=== PATIENT | female | born 1955 | race Caucasian/White ===

== ENCOUNTER 2021-12-31 12:38 | Emergency (ER) | payer OTHER, SELFPAY ==
--- NOTE | ~2021-12-31 | XR_ITS ---
EXAMINATION: XR foot RT min 3V DATE: 12/31/2021 13:05 INDICATION: Right foot injury and pain. TECHNIQUE: 4 views of right foot were obtained. COMPARISON: None. FINDINGS: Bone alignment is normal. There is an oblique fracture of distal fibula. There is mild oste oarthritis of first metatarsophalangeal joint and some of the interphalangeal joints. There is an ent hesophyte at plantar aspect of calcaneal tuberosity. IMPRESSION: 1. Oblique fracture of distal fibula. 2. Mild polyarticular osteoarthritis. Reviewed, dictated and finalized at location A. TURE AND ROTOR WINDER
--- NOTE | ~2021-12-31 | XR_ITS ---
EXAMINATION: XR ankle RT min 3V DATE: 12/31/2021 13:02 INDICATION: Right ankle injury and pain. TECHNIQUE: 4 views of right ankle were obtained. COMPARISON: None. FINDINGS: There is an oblique fracture of distal fibula with medial aspect of the fracture line 10 mm proximal to the level of the tibial plafond. The distal fracture fragment demonstrates near-anatomic alignment. There is an osteochondral lesion of medial talar dome. There is an enthesophyte at planta r aspect of calcaneal tuberosity. IMPRESSION: 1. Oblique fracture of distal fibula. 2. Osteochondral lesion of medial talar dome. Reviewed, dictated and finalized at location A. RPROOFING MACHINE OPERATOR
[2021-12-31 13:08] VITALS: BP 180/86; PULSE 98; RESP 16; TEMP 36.8; O2SAT 99
--- NOTE | 2021-12-31 13:58 | ED.GENADULT ---
HPI - General Adult General Chief complaint: Extremity Injury, Lower Stated complaint: Right ankle pain Source: patient Mode of arrival: ambulatory Limitations: no limitations History of Present Illness HPI narrative: Patient presents for evaluation right lower extremity pain. Indicates she slipped on the ice 3 weeks ago and landed on her RLE. She did not hit her head nor did she have LOC. She has not a considerable amount of pain in that extremity. She thought that she had a sprain of her right ankle so did not seek medical attention. She has noticed right lower extremity is significantly larger than the left lower extremity so came in here for further evaluation. She is a current 1 pack/day smoker. She is not on estrogen. No personal or family history of VTE. Related Data Home Medications Medication Instructions Recorded Confirmed cetirizine 10 mg tablet 10 mg PO DAILY PRN 11/19/20 12/31/21 Allergies Allergy/AdvReac Type Severity Reaction Status Date / Time No Known Allergies Allergy Verified 12/31/21 13:07 Review of Systems Review of Systems: CONSTITUTIONAL: Denies fever, chills, or sweats. EYES: Denies visual changes, redness, or discharge. ENT: Denies rhinorrhea, congestion, sore throat, or otalgia. CARDIOVASCULAR: Denies chest pain, palpitations RESPIRATORY: Denies cough or dyspnea. GASTROINTESTINAL: Denies abdominal pain, nausea, vomiting, or diarrhea. GENITOURINARY: Denies dysuria or hematuria. SKIN: Denies rash or itching. MUSCULOSKELETAL: Reports swelling in the right lower extremity. Denies back pain or myalgia NEUROLOGIC: Denies headache, numbness, dizziness, or weakness. PSYCHIATRIC: Denies anxiety or depression. [facility] Past Medical History Medical History (Updated 12/31/21 @ 14:04 by LUCAS Gonzalez, NISHA) Atopic dermatitis Essential (primary) hypertension Surgical History Surgical History History of nasal septoplasty Family History Family History Mother Family history of arthritis Family history of irritable bowel syndrome Social History Social History Smoking status: Heavy tobacco smoker Alcohol intake: current Alcohol use details: 4 drinks 3-4 times per week Substance use: never Living arrangements: with family Gender identity (if verbalized by the patient): Female Sexual Orientation (if Verbalized by the Patient): Straight or Heterosexual Spiritual care concerns: No Exam Narrative: GENERAL: Well-appearing, well-nourished, and in no acute distress. HEAD: Normocephalic, atraumatic. EYES: PERRLA and EOMI. ENT: Nares clear, no rhinorrhea or epistaxis. Mucous membranes moist. Oropharynx without tonsillar hypertrophy exudate or other lesions. Bilateral TMs pearly white nonbulging NECK: Supple. No adenopathy or masses. No carotid bruits or JVD CHEST: Clear to auscultation. No respiratory distress. No wheezes rales or rhonchi HEART: Regular rate and rhythm. No murmur heard. Normal peripheral pulses. ABDOMEN: Soft, nontender, nondistended, normal active bowel sounds. EXTREMITIES: Normal range of motion. 2+ pitting edema right lower extremity. Trace pitting edema left lower extremity. SKIN: Warm, dry, no rash. NEURO: No focal deficits. Alert and oriented x3. PSYCH: Normal mood and affect. Course Course Emergency Course: This is a 66-year-old female who presented with swelling in her right lower extremity after a fall 3 weeks ago. There is asymmetrical enlargement of right lower extremity. Recent long bone fracture and current smoking habit, I would be concerned for DVT. We do not have crutches to provide patient and she would likely benefit from ultrasound. Will transfer to the ER for further evaluation. She was not splinted as this will need to be removed for ultrasound. I spo
== END 2021-12-31 14:08 | disposition short-term general hospital (02) ==
PROVIDERS: Emergency Provider Nurse Practitioner; PCP Family Medicine
DX: S82.831A Other fracture of upper and lower end of right fibula, initial encounter for closed fracture (principal); W00.9XXA Unspecified fall due to ice and snow, initial encounter; R60.0 Localized edema; F17.200 Nicotine dependence, unspecified, uncomplicated; I10 Essential (primary) hypertension
CPT/HCPCS: 73610; 73630; 99213; G0463

== ENCOUNTER 2021-12-31 14:27 | Emergency (ER) | payer OTHER, SELFPAY ==
--- NOTE | ~2021-12-31 | US_ITS ---
EXAMINATION:US venous doppler LE RT INDICATION:Leg swelling TECHNIQUE: Multiple grayscale, color flow and Doppler images of the right lower extremity deep venous systems were obtained and reviewed. COMPARISON:No prior studies for comparison. FINDINGS: The common femoral, superficial femoral and popliteal veins demonstrate normal respiratory variation, augmentation and compressibility. Color flow is also seen within the posterior tibial, pe roneal, greater saphenous and profunda veins. IMPRESSION: 1: No lower extremity deep venous thrombosis. Reviewed, dictated and finalized at location A. SWING OPERATOR
[2021-12-31 14:31] VITALS: BP 176/92; PULSE 83; RESP 16; O2SAT 98
--- NOTE | 2021-12-31 15:43 | ED.LOWEXIN ---
HPI - Extremity Injury (Lower) General Chief Complaint: Extremity Injury, Lower Stated Complaint: right leg injury Time Seen by Provider: 12/31/21 14:40 Source: patient and RN notes reviewed Mode of arrival: ambulatory Limitations: no limitations History of Present Illness HPI Narrative: This is a 66 year old female who presents from [facility] for evaluation to rule out DVT. Patient fell and injured her right ankle 2.5 weeks ago. She developed ankle bruising and swelling at time of injury. She has been walking around on her right hand. She has minimal pain unless she bears weight. She finally went to [facility] for evaluation today because her swelling did not improve. She was found to have nondisplaced fibula fracture at [facility]. She was sent to ER for Venous DOppler to rule out DVT. She denies chest pain, shortness of breath or dizziness. She denies history of DVT, PE. Related Data Home Medications Medication Instructions Recorded Confirmed cetirizine 10 mg tablet 10 mg PO DAILY PRN 11/19/20 12/31/21 Allergies Allergy/AdvReac Type Severity Reaction Status Date / Time No Known Allergies Allergy Verified 12/31/21 13:07 Review of Systems Review of Systems: All systems reviewed & are unremarkable except as noted in HPI and below PMFSH Past Medical History Medical History (Updated 12/31/21 @ 15:48 by Annalise Sosa MD) Atopic dermatitis Essential (primary) hypertension Surgical History Surgical History History of nasal septoplasty Family History Family History Mother Family history of arthritis Family history of irritable bowel syndrome Social History Social History Smoking status: Heavy tobacco smoker Alcohol intake: current Alcohol use details: 4 drinks 3-4 times per week Substance use: never Gender identity (if verbalized by the patient): Female Sexual Orientation (if Verbalized by the Patient): Straight or Heterosexual Spiritual care concerns: No Exam Const: General: no acute distress and alert Orientation/consciousness: patient oriented x3 Eyes: EOM: EOMs intact bilaterally Resp: Effort & Inspection: normal respiratory effort Neuro: General: patient oriented x3 and moves all extremities Extrem: Other: right ankle and lower leg with swelling, no calf tenderness, no bruising. able to move . neurovascularly intact, palpable DP pulse Psych: Mental Status: mental status grossly normal Affect: normal affect Course Reevaluation(s) Reevaluation #1: I showed patient xray and discussed discharge plan to follow up . Date: 12/31/21 Time: 15:46 Vital Signs Vital signs: Vital Signs Pulse Rate 83 12/31/21 14:31 Respiratory Rate 16 12/31/21 14:31 Blood Pressure 176/92 H 12/31/21 14:31 Pulse Oximetry 98 12/31/21 14:31 Pulse Rate 83 12/31/21 14:31 Respiratory Rate 16 12/31/21 14:31 Blood Pressure 176/92 H 12/31/21 14:31 Pulse Oximetry 98 12/31/21 14:31 MDM - Extremity Injury (Lower) Imaging Data Radiologist's impression: ITS Impressions Venous Doppler Study 12/31/21 15:16 IMPRESSION: 1: No lower extremity deep venous thrombosis. Discharge Plan Discharge Clinical Impression: Closed nondisplaced oblique fracture of shaft of fibula Qualifiers: Encounter type: initial encounter Laterality: right Qualified Code(s): S82.434A - Nondisplaced oblique fracture of shaft of right fibula, initial encounter for closed fracture Patient Disposition: Home, Self-Care Condition: Stable Instructions: Ankle Fracture (ED), Leg Fracture (ED) Additional Instructions: Call the orthopedic surgeon on Sunday to arrange for follow up appointment. Read discharge instructions. Do not bear weight on your right leg until you a
== END 2021-12-31 16:35 | disposition home or self-care (01) ==
PROVIDERS: Emergency Provider General Practice; PCP Family Medicine
DX: S82.434A Nondisplaced oblique fracture of shaft of right fibula, initial encounter for closed fracture (principal); I10 Essential (primary) hypertension; F17.200 Nicotine dependence, unspecified, uncomplicated; W19.XXXA Unspecified fall, initial encounter
CPT/HCPCS: 29515; 93971; 99284

== ENCOUNTER → 2022-06-30 11:50 | Outpatient (CLI) | payer OTHER, SELFPAY ==
--- NOTE | ~2022-06-30 | CT_ITS ---
EXAMINATION: CT lung screening DATE: 06/30/2022 12:13 INDICATION: Tobacco use TECHNIQUE: Computed tomography (CT) of the chest was performed without intravenous contrast. Automate d exposure control and iterative reconstruction technique were employed. Exam dose: 116.60 mGy-cm to hui exam DLP. COMPARISON: 09/13/2017 two-view chest FINDINGS: Scattered primarily central and upper lung patchy septal soft tissue thickening of the lung s. There is old pulmonary granulomatous disease on the right. No pulmonary mass lesion. No pulmonary infiltrate or consolidation or pulmonary mass lesion is detect ed. Normal heart size. Coronary artery calcification. No thoracic aortic aneurysm. There is thoracic aort ic and great vessel calcification. No hilar or mediastinal mass lesion or lymphadenopathy. No pericardial or pleural effusion. Normal morphology of the adrenal glands. IMPRESSION: Lung RADS category 1: Negative Recommendation: Continue annual screening with LD CT in 12 months Reviewed, dictated and finalized at Location A. Reviewed, dictated and finalized at location B.
== END ==
PROVIDERS: PCP Family Medicine; Visit Provider Family Medicine
DX: Z12.2 Encounter for screening for malignant neoplasm of respiratory organs (principal); F17.210 Nicotine dependence, cigarettes, uncomplicated
CPT/HCPCS: 71271

== ENCOUNTER → 2022-09-04 15:51 | Outpatient (CLI) | payer OTHER, SELFPAY ==
--- NOTE | ~2022-09-04 | MM_ITS ---
EXAMINATION: MM screening nichole BI w serafin HISTORY: Screening mammogram TECHNIQUE: Craniocaudal and mediolateral oblique 3-D tomosynthesis images were obtained and synthetic 2-D images were generated. CAD analysis was submitted and interpreted. COMPARISON: No prior mammogram is available for comparison at this institution. BREAST PARENCHYMAL COMPOSITION: There are scattered areas of fibroglandular density. FINDINGS: Multiple scattered bilateral benign calcifications are noted. There is no evidence of suspi cious mass, calcification, or architectural distortion to suggest malignancy in either breast. There has been no suspicious interval change. IMPRESSION: 1. No mammographic evidence of malignancy. 2. Recommend routine screening mammography in one year. BI-RADS Category 2: Benign finding(s). Reviewed, dictated and finalized at location A. FILL GAS COLLECTION OPERATOR
== END ==
PROVIDERS: PCP Family Medicine; Visit Provider Family Medicine
DX: Z12.31 Encounter for screening mammogram for malignant neoplasm of breast (principal)
CPT/HCPCS: 77063; 77067

== ENCOUNTER 2023-01-08 13:31 | Outpatient (CLI) | payer OTHER, SELFPAY ==
--- NOTE | ~2023-01-08 | US_ITS ---
EXAMINATION: US carotid duplex BI DATE: 01/08/2023 14:30 INDICATION: Carotid bruit. Other specified symptoms and signs involving the circulatory system. TECHNIQUE: Grayscale, color Doppler, and pulsed Doppler images of the cervical carotid arteries were obtained. The degree of vessel stenosis is placed in one of the following categories: normal, <50%, 5 0-69%, >=70% but less than near-occlusion, near-occlusion, or total occlusion. Note that percent sten osis relative to normal distal artery lumen diameter is indirectly measured from velocity measurement s as described by Alberto, et al. Radiology 2003; 229:340-346. COMPARISON: None. FINDINGS: RIGHT: The right common carotid artery (CCA) peak systolic velocity (PSV) is 55 cm/s. The right internal car otid artery (ICA) PSV is 43 cm/s. The right ICA end-diastolic velocity (EDV) is 15 cm/s. The right IC A/CCA PSV ratio is 0.8. Grayscale and color Doppler images yield an estimate of <50% diameter reducti on from plaque in the ICA. There is antegrade flow in the right vertebral artery. LEFT: The left CCA PSV is 38 cm/s. The left ICA PSV is 34 cm/s. The left ICA EDV is 13 cm/s. The left ICA/C CA PSV ratio is 0.9. Grayscale and color Doppler images yield an estimate of <50% diameter reduction from plaque in the ICA. There is antegrade flow in the left vertebral artery. IMPRESSION: 1. <50% stenosis in the right internal carotid artery. 2. <50% stenosis in the left internal carotid artery. Reviewed, dictated and finalized at location A.
== END 2023-01-08 13:32 | disposition home or self-care (01) ==
PROVIDERS: PCP Family Medicine; Visit Provider Nurse Practitioner
DX: R09.89 Other specified symptoms and signs involving the circulatory and respiratory systems (principal); I65.23 Occlusion and stenosis of bilateral carotid arteries
CPT/HCPCS: 93880

== ENCOUNTER → 2023-03-29 13:43 | Outpatient (CLI) | payer OTHER, SELFPAY ==
--- NOTE | ~2023-03-29 | US_ITS ---
EXAMINATION: US venous doppler [facility] DATE: 03/29/2023 14:03 INDICATION: Left lower limb swelling. Other specified soft tissue disorders. TECHNIQUE: Grayscale ultrasound images without and with compression and Doppler ultrasound images of the left lower extremity veins were obtained. COMPARISON: None. FINDINGS: The visualized portions of left common femoral vein, profunda (deep) femoral vein, femoral vein, popl iteal vein, peroneal veins, posterior tibial veins, and greater saphenous vein outflow are patent. IMPRESSION: 1. No deep venous thrombosis. Reviewed, dictated and finalized at location A.
== END ==
PROVIDERS: PCP Family Medicine; Visit Provider Family Medicine
DX: M79.89 Other specified soft tissue disorders (principal)
CPT/HCPCS: 93971

== ENCOUNTER 2023-04-18 13:57 | Outpatient (CLI) | payer OTHER, SELFPAY ==
--- NOTE | ~2023-04-18 | US_ITS ---
US arterial ankle brachial ind INDICATION: Leg swelling. History of smoking. Hypertension. TECHNIQUE: Segmental pressures and plethysmographic and Doppler waveforms of the brachial and lower e xtremity arteries were obtained. COMPARISON: None. FINDINGS: Right and left brachial artery pressures of 133 mm Hg and 139 mm Hg, respectively, are concordant (no rmal difference <= 30 mmHg). The right ankle-brachial index (RICKEY) is 1.09 (normal >= 0.9-1.0). The right great toe-brachial index (TBI) is 0.61 (normal >= 0.60). The left RICKEY is 1.14. The left TBI is 0.95. IMPRESSION: 1. Normal bilateral ankle and toe brachial indices. Reviewed, dictated and finalized at location []
== END 2023-04-18 13:58 | disposition home or self-care (01) ==
PROVIDERS: PCP Family Medicine; Visit Provider Family Medicine
DX: M79.89 Other specified soft tissue disorders (principal); I10 Essential (primary) hypertension
CPT/HCPCS: 93922

== ENCOUNTER 2025-03-19 15:30 | Emergency (ER) | payer OTHER, SELFPAY ==
--- NOTE | ~2025-03-19 | XR_ITS ---
XR chest 2V Ordering provider: Zaida Hassan APRN History: 69 years Female with . cough, shortness of breath, wheezing x 3 days; smoker . Comparison: None FINDINGS: MEDIASTINUM: The cardiac silhouette is not enlarged. LUNGS: No effusions or pneumothorax. Prominent bronchovascular markings in the lower lobes. Early pne umonia is not excluded. OTHER: No free air under the diaphragm. IMPRESSION: Prominent bronchovascular markings in the lower lobes. Early pneumonia is not excluded. Follow-up adv ised. Reviewed, dictated and finalized at location A. IMPRESSION: Prominent bronchovascular markings in the lower lobes. Early pneumonia is not e xcluded. Follow-up advised.
--- NOTE | 2025-03-19 15:33 | ED.URI ---
HPI - URI/Sore Throat General Chief Complaint: Upper Respiratory Infection Stated Complaint: SOB/Sinus Source: patient and RN notes reviewed Mode of arrival: ambulatory Limitations: no limitations History of Present Illness HPI Narrative: Patient is a 69-year-old female who presents to the [facility] with sinus pressure, cough, and shortness of breath that started yesterday. Patient reports a frequent productive cough with white/yellow sputum. She reports intermittent shortness of breath that worsens with exertion and coughing. Denies chest pain. States that she has had sinus pain and pressure since yesterday. She endorses nasal congestion and drainage. States that she has also had bilateral ear pain. Denies sore throat. Denies any known sick contacts. Related Data Allergies Allergy/AdvReac Type Severity Reaction Status Date / Time No Known Allergies Allergy Verified 10/07/24 13:03 Review of Systems Review of Systems: CONSTITUTIONAL: Denies fever, chills, or sweats. EYES: Denies visual changes, redness, or discharge. ENT: Reports otalgia, nasal congestion, sinus pain/pressure. CARDIOVASCULAR: Denies chest pain, palpitations, or edema. RESPIRATORY: Reports cough and dyspnea. GASTROINTESTINAL: Denies abdominal pain, nausea, vomiting, or diarrhea. GENITOURINARY: Denies dysuria or hematuria. SKIN: Denies rash or itching. MUSCULOSKELETAL: Denies back pain, joint pain, or myalgia. NEUROLOGIC: Denies headache, numbness, or weakness. Pertinent positives per HPI. [facility] Past Medical History Medical History Fracture of distal end of right fibula Atopic dermatitis Essential (primary) hypertension Surgical History Surgical History History of nasal septoplasty Family History Family History Mother Family history of arthritis Family history of irritable bowel syndrome Social History Social History Smoking packs per day: 1.25 Smoking cigarettes per day: 25.0 Years smoked: 46 Smoking pack-years: 57.50 Smoking status: Heavy tobacco smoker Alcohol intake: current Alcohol use details: 4 drinks 3-4 times per week Substance use: never Lack of Transportation: No Current Housing: I Have Housing Concerned About Future Housing: No Difficulty Paying Gas/Electric Bills: No Difficulty Paying for Meds: No Currently Unemployed: No Education: Bachelor's Degree Difficulty w/ Childcare or Family Care: No Living arrangements: with family Gender identity (if verbalized by the patient): Female Sexual Orientation (if Verbalized by the Patient): Straight or Heterosexual Spiritual care concerns: No Comments At the time of my signature, I reviewed and agree with the nursing past medical, surgical, social, and family history. There is no relevant family history pertinent to the patient complaint. Exam Narrative: GENERAL: This is a well-nourished, well-developed patient, in no apparent distress. HEAD: normocephalic, atraumatic. EYES: Sclera clear/white. Vision is grossly intact. EARS: External ears normal. Bilateral TMs erythematous. Hearing grossly intact. NOSE: External nose normal. + congestion. THROAT: Mucous membranes moist, posterior pharynx clear. NECK: Neck supple, non-tender without lymphadenopathy, masses or thyromegaly. CARDIOVASCULAR: Regular rate and rhythm without murmurs, gallops, or rubs. RESPIRATORY: Rhonchi (left). Bilateral diffuse wheezing. GASTROINTESTINAL: Abdomen soft, non-tender, nondistended. Bowel sounds are active. No hepato-splenomegaly, or palpable masses. No guarding. SKIN: warm, intact with no suspicious lesions or rash, good texture and turgor. NEURO: awake, alert, and oriented to person, place and time. There were no obvious focal neurologic abnormalities. EXTREMITIES: No clubbing, cyanosis, or edema. No joint tenderness, effusion, or edema noted. Course Course Level of Care: Express Care Visit Vital Signs Vital signs: Vital Signs Temperature 98.1 F 03/19/25 15:40 Pulse Rate 73 03/19/25 15:40 Respiratory Rate 16 03/19/25 15:40 Blood Pressure 134/81 03/19/25 15:40 Pulse Oximetry 96 03/19/25 15:40 Temperature 98.1 F 03/19/25 15:40 Pulse Rate 73 03/19/25 15:40 Respiratory Rate 16 03/19/25 15:40 Blood Pressure 134/81 03/19/25 15:40 Pulse Oximetry 96 03/19/25 15:40 Reviewed MDM - URI/Sore Throat MDM Narrative Medical decision making narrative: Take medications as directed. May use the inhaler every 4-6 hours as needed for coughing. Increase fluids at home. Avoid any and all smoke. May use a humidifier in the bedroom. Increase your Vitamin C. Follow-up with personal physician in 2-5 days. Differential Diagnosis Differential diagnosis: Likely upper respiratory infection, sinusitis, viral infection, bronchitis, influenza and other (covid, pneumonia) Lab Data Attestation: I reviewed the patient's lab results. Imaging Data Attestation: I personally reviewed and interpreted this imaging study as follows: Radiologist's impression: Close Chest X-Ray (Signed) Mario Li - 03/19/25 Launch?[facility] [address] [place] [address] XRay Report Signed Patient: Angelika Nation : 1955 MR#: [id number] Age: 69 Acct:[id number] Loc: [facility] ADM Date: 03/19/25Attending Dr: Ordering Physician: Zaida Hassan APRN Date of Service: 03/19/25 Procedure(s): XR chest 2V Accession Number(s): [id number] cc: Zaida Hassan APRN; Libby Quijano DO~ XR chest 2V Ordering provider: Zaida Hassan APRN History: 69 years Female with . cough, shortness of breath, wheezing x 3 days; smoker . Comparison: None FINDINGS: MEDIASTINUM: The cardiac silhouette is not enlarged. LUNGS: No effusions or pneumothorax. Prominent bronchovascular markings in the lower lobes. Early pneumonia is not excluded. OTHER: No free air under the diaphragm. IMPRESSION: Prominent bronchovascular markings in the lower lobes. Early pneumonia is not excluded. Follow-up advised. Reviewed, dictated and finalized at location A. Please be advised this is a medical document. It is intended for [id number] communication. It is written in medical language and may contain unfamiliar abbreviations or verbiage. Medical documents are intended to carry relevant information, facts as evident, and the clinical opinion of the practitioner at the time of the encounter. This report may have been done utilizing a voice recognition system. Attempts have been made to correct errors. However, there may be uncorrected grammatical, spelling, and recognition errors present. The file time of this note does not necessarily represent the time of service. Dictated By: Mario Li MD 03/19/25 1556 Signed By: <Electronically signed by Mario Li MD in OV> 03/19/25 1556 Critical Care Time Critical Care Time Critical Care Time: No Discharge Plan Discharge Clinical Impression: Community acquired pneumonia Qualifiers: Laterality: unspecified laterality Qualified Code(s): J18.9 - Pneumonia, unspecified organism Patient Disposition: Home Condition: Stable Instructions: Antibiotic Form, Community Acquired Pneumonia (ED) Additional Instructions: Take medications as directed. May use the inhaler every 4-6 hours as needed for coughing. Increase fluids at home. Avoid any and all smoke. May use a humidifier in the bedroom. Increase your Vitamin C. Follow-up with personal physician in 2-5 days. Patient Language: Tajik Prescriptions: New albuterol sulfate [Ventolin HFA] 90 mcg/actuation HFA aerosol inhaler 2 puff inhalation QID PRN (Reason: shortness of breath or wheezing) Qty: 8.5 0RF prednisone 50 mg tablet 50 mg PO DAILY 5 Days Qty: 5 0RF azithromycin 250 mg tablet See Rx Instructions .ROUTE .COMPLEX Qty: 6 0RF Rx Instructions: For 250 mg dose pack: take 500 mg today (day 1), then 250 mg for 4 days (days 2-5) No Action albuterol sulfate 90 mcg/actuation HFA aerosol inhaler See Rx Instructions .ROUTE .COMPLEX Qty: 8.5 2RF Dose Instruction: INHALE 1 PUFF EVERY 4 - 6 HOURS NEEDED FOR SHORTNESS OF BREATH OR WHEEZING Rx Instructions: INHALE 1 PUFF EVERY 4 - 6 HOURS NEEDED FOR SHORTNESS OF BREATH OR WHEEZING amlodipine 10 mg tablet See Rx Instructions .ROUTE .COMPLEX Qty: 90 1RF Dose Instruction: TAKE 1 TABLET BY MOUTH EVERY DAY Rx Instructions: TAKE 1 TABLET BY MOUTH EVERY DAY Follow-up/Referrals: Libby Quijano DO [Primary Care Provider] - Time of Disposition: 16:03
[2025-03-19 15:40] VITALS: BP 134/81; PULSE 73; RESP 16; TEMP 36.7; O2SAT 96
[2025-03-19 16:29] LABS: EDCOVIDSCREEN Negative (Negative); EDINFLUASCREEN Negative (Negative); EDINFLUBSCREEN Negative (Negative)
== END 2025-03-19 16:12 | disposition home or self-care (01) ==
PROVIDERS: Emergency Provider Nurse Practitioner; PCP Family Medicine
DX: J18.9 Pneumonia, unspecified organism (principal); Z20.822 Contact with and (suspected) exposure to COVID-19; F17.210 Nicotine dependence, cigarettes, uncomplicated; I10 Essential (primary) hypertension
CPT/HCPCS: 71046; 87426; 87804; 99213; G0463

== ENCOUNTER 2025-09-08 14:47 | Outpatient (CLI) | payer OTHER, SELFPAY ==
--- OUTSIDE RECORDS SUMMARY | 2025-09-08 14:58 | XMS_ITS | Clinical Summary ---
Author Organization [facility] Address [address] [place] [id number] Care Team Providers Care Analytical Research Program Manager Name Role Phone None, Provider Primary Care Provider Unavaila ble Allergies No known active allergies Medications albuterol sulfate HFA 108 (90 Base) MCG/ACT inhaler Inhale 2 puffs into the lungs every 6 (six) hours as needed for Wheezing. 6.7 g 1 08/20/2025 Active predniSONE (DELTASONE) 10 mg tablet Take 4 tablets (40 mg total) by mouth daily for 6 days. 24 tablet 08/21/2025 08/27/20 25 Encounters Date Type Department Care Team Description 08/20/2025 12:24 PM CDT - 08/20/2025 2:11 PM CDT Emergency [facility] [place] [address] Sukhdev Badillo, Shortness Of Breath Discharge Disposition: Home or Self Care (Routine Discharge) 08/20/2025 Travel from Last 3 Months Social History Tobacco Use Types Packs/Day Years Used Date Smoking Tobacco: Every Day Cigarettes Smokeless Tobacco: Never Tobacco Cessation:Ready to Q uit: Not Asked; Counseling Given: Not Answered Alcohol Use Standard Drinks/Week Comments Not Currently 0 (1 standard drink = 0.6 oz pur e alcohol) Comments Unknown Sex and Gender Information Value Date Recorded Sex Assigned at Not on file Legal Sex Female 11:41 AM CDT Gender Identity Not on file Sexual Orientation Not on file Last Filed Vital Signs Vital Sign Reading Time Taken Comments Blood Pressure 133/78 08/20/2025 1:58 PM CDT Pulse 76 08/20/2025 1:58 PM CDT Temperature 36.4 C (97.5 F) 08/20/2025 11:48 AM CDT Respiratory Rate 16 08/20/2025 1:58 PM CDT Oxygen Saturation 100% 08/20/2025 1:58 PM CDT Inhaled Oxygen Concentration - - Weight 78.8 kg (173 lb 11.6 oz) 025 11:48 AM CDT Height 170.2 cm (5' 7) 08/20/2025 11:4 8 AM CDT Body Mass Index 27.21 08/20/2025 11:48 AM CDT Plan of Treatment Health Maintenance Due Date Last Done Comments Colorectal Cancer Screening Colonoscopy (10 Years) 1955 Hepatitis C 1975 DTaP, Tdap and Td Vaccines ( 1 - Tdap) 1976 Pneumococcal Vaccine: 50+ Years (1 of 2 - PCV) 1976 Mammogram Screening 1997 Zoster Vaccines (1 of 2) 2007 Annual Medicare Wellness Visit 2022 Dexa Scan (General) 2022 COVID-19 Vaccine (4 - 2024-2 6 season) 2025 09/17/2021, 02/06/2021, 01/13/2021 Influenza Adult (#1) 2025 09/08/2017 RSV Immunization or 60+ Years (1 - 1-dose 75+ series) 2032 Hepatitis A Vaccines Aged Out No long er eligible based on patient's age to complete this topic Meningococcal B Vaccine Aged Out No l onger eligible based on patient's age to complete this topic Meningococcal Vaccine Aged Out No alex kevon eligible based on patient's age to complete this topic RSV Immunizations Under 20 Months Aged Out No longer eligible b ased on patient's age to complete this topic Procedures Procedure Name Priority Date/Time Associated Diagnosis Comments XR CHEST PORTABLE STAT 08/20/2025 12: 52 PM CDT ECG 12-LEAD STAT 08/20/2025 12:34 PM CDT ELECTROCARDIOGRAM REPORT Routine 12:34 PM CDT COMPREHENSIVE METABOLIC PANEL STAT 08/20/2025 12:34 PM CDT CBC W/DIFF AUTOMATED STAT 08/20/2025 12:34 PM CDT from Last 3 Months Results * XR CHEST PORTABLE (08/20/2025 12:52 PM CDT) Anatomical Region Laterality Modality Chest Radiographic Hilda ging 08/20/2025 1:04 PM CDT Impressions 08/20/2025 1:10 PM CDT IMPRESSION: 1. Mild findings of viral or reactive airway disease could be bronchitis or bronchiolitis or perihilar interstitial pneumonia. 2. Given the chronicity of symptoms, at some point might consider high-resolution CT of the chest and referral to the pulmonary service.. Referred By: Interpreted By: Rachel Morgan DO, 08/20/2025 1:04 PM Narrative 08/20/2025 1:[address] PM [address]T [address] [address] CLINICAL INDICATION: 70-year-old female. Reason for examination: Chest pain. 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 Patient states that it has become difficult to do much of anything which has prompted her to come to the ED today. Patient states that she has a rescue inhaler, which she used prior to coming to the ED. Patient denies chest pain. Patient denies swelling. Patient states that she has been coughing up mucus. Patient Aox4. TECHNIQUE: Portable upright AP view of the chest COMPARISON: There is no previous imaging of this patient FINDINGS: Normal heart size and pulmonary vascular distribution. Bilateral symmetric increased perihilar markings mild bronchial wall prominence scattered peribronchial cuffing and bilateral infrahilar peribronchial interstitial thickening as evidenced by thick peripheral opacities. No pleural effusion. Centrilobular and peripheral lung zones are clear. Procedure Note Rachel Morgan MD - 08/20/2025 [facility] [address] [place], [place] [address] CLINICAL INDICATION: 70-year-old female. Reason for examination: Chest pain. 08/20/2025 12:52 PM, Frandy Zazueta B: Patient ambulatory to triage withcco SOB that has been worsening over the past year. Patient states that ithas become difficult to do much of anything which has prompted her tocome to the ED today. Patient states that she has a rescue inhaler, whichshe used prior to coming to the ED. Patient denies chest pain. Patientdenies swelling. Patient states that she has been coughing up mucus.Patient Aox4. TECHNIQUE: Portable upright AP view of the chest COMPARISON: There is no previous imaging of this patient FINDINGS: Normal heart size and pulmonary vascular distribution. Bilateral symmetric increased perihilar markings mild bronchial wallprominence scattered peribronchial cuffing and bilateral infrahilarperibronchial interstitial thickening as evidenced by thick peripheralopacities. No pleural effusion. Centrilobular and peripheral lung zonesare clear. IMPRESSION: 1. Mild findings of viral or reactive airway disease could be bronchitisor bronchiolitis or perihilar interstitial pneumonia. 2. Given the chronicity of symptoms, at some point might considerhigh-resolution CT of the chest and referral to the pulmonary service.. Referred By: Interpreted By: Rachel Morgan DO, 08/20/2025 1:04 PM Tran Suarez NP GENERAL IMAGING Final Result * ECG 12 lead (08/20/2025 12:34 PM CDT) ECG QT 393 [facility] ECG QTC 430 [facility] 08/20/2025 12:3 4 PM CDT Narrative [facility] - 08/20/2025 7:[address] [facility] Test Date: 2025-08-20 Pat Name: ANGELIKA NATION Department: 41 Room: Gender: F Induction Coordination Power Engineer: [id number] : 1955 Requested By: TRAN SUAREZ Order Number: [id number] Reading MD: Myla Sim Measurements Intervals [place] Rate: 71 P: 79 [place]: 159 QRS: 67 QRSD: 74 T: 60 QT: 393 QTc: 430 Interpretive Statements SINUS RHYTHM LOW QRS VOLTAGE IN PRECORDIAL LEADS [QRS DEFLECTION < 1.0 mV IN CHEST LEADS] No previous ECG available for comparison Procedure Note Myla Sim MD - 08/20/2025 [facility] [address] Test Date: 2025-08-20 Pat Name: ANGELIKA NATION Department: 41 Room: Gender: F Induction Coordination Power Engineer: [id number] : 1955 Requested By: TRAN SUAREZ Order Number: [id number] Reading MD: Myla Sim Measurements Intervals [place] Rate: 71 P: 79 [place]: 159 QRS: 67 QRSD: 74 T: 60 QT: 393 QTc: 430 Interpretive Statements SINUS RHYTHM LOW QRS VOLTAGE IN PRECORDIAL LEADS [QRS DEFLECTION < 1.0 mV IN CHESTLEADS] No previous ECG available for comparison us Tran Suarez BAR MACHINE OPERATOR PRODUCTION ECG ORDERABLES Final Result [facility] RAD * EKG Reading (08/20/2025 12:34 PM CDT) Sukhdev Hoyos, - 08/20/2025 12:34 PM CDT Sukhdev Badillo DO 08/21/2025 2:10 PM EKG Reading Date/Time: 08/20/2025 12:34 PM Performed by: Sukhdev Badillo DO Authorized by: Sukhdev Badillo DO Interpreted by ED physician Rhythm: sinus rhythm Rate: normal BPM: 71 QRS axis: normal Conduction: conduction normal ST Segments: ST segments normal Clinical impression: non-specific ECG Comments: Nonspecific T wave changes Sukhdev Badillo DO [place] [facility] Final Result * (ABNORMAL) COMPREHENSIVE METABOLIC PANEL (08/20/2025 12:34 PM CDT) [facility] GLUCOSE 93 70 - 99 MG/DL 08/20/2025 1:23 PM CDT [facility] BUN 14 7 - 18 MG/DL 08/20/2025 1:23 PM CDT [facility] CREATININE S/P/B 0.54(L) 0.55 - 1.02 MG/DL 08/20/2025 1:23 PM CDT [facility] SODIUM S/P/B 140 136 - 145 MMOL/L 08/20/2025 1:23 PM CDT [facility] POTASSIUM S/P/B 4.0 3.5 - 5.1 MMOL/L 08/20/2025 1:23 PM CDT [facility] CHLORIDE S/P/B 108 97 - 115 MMOL/L 08/20/2025 1:23 PM CDT [facility] CO2 25.8 21 - 32 MMOL/L 08/20/2025 1:23 PM CDT [facility] CALCIUM S/P/B 8.9 8.5 - 10.1 MG/DL 08/20/2025 1:23 PM CDT [facility] BILIRUBIN TOTAL S/P/B 0.5 0.2 - 1.2 MG/DL 08/20/2025 1:23 PM CDT [facility] Comment: THIS ASSAY IS NOT RECOMMENDED FOR PATIENTS UNDERGOING TREATMENT WITH ELTROMBOPAG DUE TO THE POTENTIAL FOR FALSELY ELEVATED RESULTS. TOTAL PROTEIN S/P/B 7.2 6.4 - 8.2 G/DL 08/20/2025 1:23 PM CDT [facility] ALBUMIN S/P/B 3.7 3.4 - 5.0 G/DL 08/20/2025 1:23 PM CDT [facility] AST 13(L) 15 - 37 U/L 08/20/2025 1:23 PM CDT [facility] ALT 25 14 - 55 U/L 08/20/2025 1:23 PM CDT [facility] ALKALINE PHOSPHATASE S/P/B 104 50 - 136 U/L 08/20/2025 1:23 PM CDT [facility] ANION GAP 6.2 2 - 10 MMOL/L 08/20/2025 1:23 PM CDT [facility] BUN CREATININE RATIO 26.1(H) 6 - 26 08/20/2025 1:23 PM CDT [facility] A/G RATIO 1.1 1.0 - 2.0 RATIO 08/20/2025 1:23 PM T [facility] GFR ESTIMATE >90 >90 ML/MIN/1.7 3 M2 08/20/2025 1:23 PM CDT [facility] Comment: NOTE: eGFR is not calculated for patients <18 years of age or gender unknown. This is an estimated GFR calculation using the new CKD EPI creatinine equation without race and so does not require a correction factor for race. This estimated GFR should not be used for calculating drug doses. 08/20/2025 12:3 4 PM CDT us Tran Suarez NP LABORATORY Final Result [facility] [address] [place] [address], * (ABNORMAL) CBC W/DIFF AUTOMATED (08/20/2025 12:34 PM CDT) [facility] WBC 9.68 4.5 - 11.0 x10'3/uL 08/20/2025 1:01 PM CDT [facility] RBC 5.12 4.20 - 5.40 x10'6/uL 08/20/2025 1:01 PM CDT [facility] HGB 15.0 12.0 - 16.0 G/DL 08/20/2025 1:01 PM CDT [facility] HCT 46.2 38.0 - 48.0 % 08/20/2025 1:01 PM CDT [facility] MCV 90.2 81.0 - 99.0 FL 08/20/2025 1:01 PM CDT [facility] MCH 29.3 27.0 - 31.0 PG 08/20/2025 1:01 PM CDT [facility] MCHC 32.5 32.0 - 36.0 G/DL 08/20/2025 1:01 PM CDT [facility] RDW 12.9 11.5 - 14.5 % 08/20/2025 1:01 PM CDT [facility] PLT 243 130 - 400 x10'3/uL 08/20/2025 1:01 PM CDT [facility] MPV 11.3 9.3 - 12.2 FL 08/20/2025 1:01 PM CDT [facility] DIFFERENTIAL TYPE AUTOMATED DIFFERENTIAL 08/20/2025 1:01 PM CDT [facility] NEUTROPHILS % 68.9 % 08/20/2025 1:01 PM CDT [facility] LYMPHOCYTES % 16.6 % 08/20/2025 1:01 PM CDT [facility] MONOCYTES % 6.8 % 08/20/2025 1:01 PM CDT [facility] EOSINOPHILS 6.9 % 08/20/2025 1:01 PM CDT [facility] BASOPHILS 0.6 % 08/20/2025 1:01 PM CDT [facility] IMMATURE GRANS % 0.2 % 08/20/20 1:01 PM CDT [facility] ABS. NEUTROPHILS 6.66 1.80 - 7.70 x10'3/uL 08/20/2025 1:01 PM CDT [facility] ABS. LYMPHOCYTES 1.61 1.00 - 4.80 x10'3/uL 08/20/2025 1:01 PM CDT [facility] ABS. MONOCYTES 0.66 0.24 - 0.86 x10'3/uL 08/20/2025 1:01 PM CDT [facility] ABS. EOSINOPHILS 0.67(H) 0.04 - 0.36 x10'3/uL 08/20/2025 1:01 PM CDT [facility] ABS. BASOPHILS 0.06 0.01 - 0.08 x10'3/uL 08/20/2025 1:01 PM CDT [facility] ABS. IMMATURE GRANULOCYTES 0.02 0.00 - 0.49 x10'3/uL 08/20/2025 1:01 PM CDT [facility] 08/20/2025 12:3 4 PM CDT us Tran Suarez NP LABORATORY Final Result [facility] [address] [place] [address], [place] [phone] from Last 3 Months Insurance [facility] Care Teams Analytical Research Program Manager Relationship Specialty Start Date End Date None, Provider, PCP - General UNKNOWN PHYSICIAN SPECIALTY 08/20/25
--- NOTE | 2025-09-09 08:48 | P.PCNPFT_ITS ---
PFT Procedure Performed PFT Procedure Performed Spirometry with Pre/Post Bronchodilator Plethysmography (Lung Vol) Diffusing Cap (DLCO) Flow Vol Loop PFT Interpretation This is a pulmonary function test with pre and post-bronchodilator spirometry, plethysmography and diffusing capacity. The test was performed and results interpreted in accordance with the 2019 and 2005 ATS/ERS Task Force guidelines respectively using the Global Lung Function Initiative-2012 reference equations. Patient demonstrated good effort and cooperation. Reproducibility criteria were met. The quality of the pre bronchodilator spirometry maneuver was Grade A and post bronchodilator spirometry maneuver was Grade A. Findings: Spirometry: There is decreased maximal expiratory airflow at all lung volumes with a concave expiratory flow tracing. The contour the inspiratory flow tracing is normal. The pre bronchodilator FVC is 2.20 L, 68% predicted. The pre bronchodilator FEV1 is 1.13 L, 45% predicted. The pre bronchodilator FEV1: FVC ratio is 51%. The post bronchodilator FVC is 2.28 L, representing a 4% increase. The post bronchodilator FEV1 is 1.22 L, representing an 8% increase. The post bronchodilator FEV1: FVC ratio is 53%. Plethysmography: The total lung capacity is 5.99 L, 109% predicted. The functi onal residual capacity is 4.36 L, 138% predicted. The residual volume is 3.79 L, 165% predicted. The residual volume: Total lung capacity ratio 63%. Diffusing capacity: The diffusing capacity unadjusted for hemoglobin and carboxyhemoglobin is 10.9, 50% predicted. The diffusing capacity adjusted for alveolar volume is 2.90, 69% predicted. Impression: There is a severe obstructive abnormality. There is no significant improvement after inhaling a single dose of albuterol. The increase in residual volume to total lung volume ratio is consistent with hyperinflation from an obstructive abnormality. The diffusing capacity unadjusted for hemoglobin and carboxyhemoglobin is moderately decreased and normalizes when adjusted for alveolar volume. There are no prior studies for comparison
== END 2025-09-08 14:48 | disposition home or self-care (01) ==
PROVIDERS: PCP Family Medicine
DX: R06.02 Shortness of breath (principal); J40 Bronchitis, not specified as acute or chronic; F17.200 Nicotine dependence, unspecified, uncomplicated; R94.2 Abnormal results of pulmonary function studies
CPT/HCPCS: 94060; 94726; 94729

== ENCOUNTER 2025-09-14 09:47 | Outpatient (CLI) | payer OTHER, SELFPAY ==
--- NOTE | ~2025-09-14 | CT_ITS ---
EXAMINATION:CT diagnostic chest w con DATE: 09/14/2025 10:16 INDICATION: Bronchitis TECHNIQUE: Computed tomography (CT) of the chest was performed without intravenous contrast. The dose-length product (DLP) was 197.56 mGy-cm. COMPARISON: June 30, 2022 FINDINGS: Moderately severe diffuse centrilobular emphysematous changes, more pronounced in the upper lung mcclure, and scattered areas of mild fibrosis appearing changes but no consolidation effusion or pneumothorax. Central and large airways are patent. Heart and great vessels stable. Left paratracheal mildly pathologic sized lymph nodes also unchanged in size or appearance. No acute process in the visualized portions of the upper abdomen, bony thorax or extrathoracic soft tissues. IMPRESSION: No acute interval change compared to June 30, 2022. Findings as above. Reviewed, dictated and finalized at location A. ING STONECUTTER IMPRESSION: No acute interval change compared to June 30, 2022. Findings a s above.
[2025-09-14 10:12] LABS: Estimated Glomerular Filt Rate > 60
== END 2025-09-14 09:48 | disposition home or self-care (01) ==
PROVIDERS: PCP Family Medicine
DX: J40 Bronchitis, not specified as acute or chronic (principal)
CPT/HCPCS: 71260; Q9967